=== PATIENT | female | born 1940 | race Caucasian/White ===

== ENCOUNTER 2016-12-13 17:49 | Emergency (ER) | payer MEDICARE, OTHER ==
[2016-12-13] MEDS ORDERED: DIPH/PERTUSS(ACELL)/TETANUS VAC/PF 0.5 ML SYR (>=10YO) IM ONE (18:56)
--- NOTE | 2016-12-13 18:59 | ER Document Report ---
ED Medical Screen (RME) - General Chief Complaint: Fall Injury Stated Complaint: FALL/CUT ON FACE/ARM PAIN Time Seen by Provider: 12/13/16 18:50 Notes: This 76-year-old female patient was driving to this area from [facility] and stopped at a rest area about 2 PM today. While outside her car she tripped and fell face forward landing on her hands and knees. She struck her face and suffered a laceration to the right upper lip, she injured her left elbow, she has bruising to both hands, she has abrasion with bleeding to the right knee. She has a right total knee. She has been able to ambulate without difficulty. She is on Eliquis leading to the excessive bruising that she has. I have greeted and performed a rapid initial assessment of this patient. A comprehensive ED assessment and evaluation of the patient, analysis of test results and completion of the medical decision making process will be conducted by additional ED providers. TRAVEL OUTSIDE OF THE [place] IN LAST 30 DAYS: No - Related Data Allergies/Adverse Reactions: heparin Allergy (Verified 12/13/16 18:15) omeprazole [From Prilosec] Allergy (Verified 12/13/16 18:15) Past Medical History - Social History Chew tobacco use (# tins/day): No Frequency of alcohol use: None Drug Abuse: None Renal/ Medical History: Denies: Hx Peritoneal Dialysis Surgical Hx: Negative Past Surgical History: Reports: Hx Orthopedic Surgery - Immunizations Hx Diphtheria, Pertussis, Tetanus Vaccination: No Physical Exam - Vital signs Vitals: Temp Pulse Resp BP Pulse Ox 98.3 F 60 16 150/63 H 94 12/13/16 18:16 12/13/16 18:16 12/13/16 18:16 12/13/16 18:16 12/13/16 18:16 Course - Vital Signs Vital signs: Temp Pulse Resp BP Pulse Ox 98.3 F 60 16 150/63 H 94 12/13/16 18:16 12/13/16 18:16 12/13/16 18:16 12/13/16 18:16 12/13/16 18:16
--- NOTE | 2016-12-13 20:01 | RADIOLOGY REPORT (SQ) ---
EXAM DESCRIPTION: ELBOW LEFT OVER 2 VIEWS COMPLETED DATE/TIME: 12/13/2016 7:50 pm REASON FOR STUDY: fall, pain and swelling COMPARISON: None. NUMBER OF VIEWS: Four views. TECHNIQUE: AP, lateral, and both oblique radiographic images acquired of the left elbow. LIMITATIONS: None. FINDINGS: MINERALIZATION: Normal. BONES: Nondisplaced radial head intra-articular fracture. No dislocation. No worrisome bone lesions . JOINT: Small effusion. SOFT TISSUES: Mild soft tissue swelling. No foreign body. OTHER: No other significant finding. IMPRESSION: Nondisplaced radial head intra-articular fracture. TECHNICAL DOCUMENTATION: JOB ID: [id number] [employer]- All Rights Reserved
--- NOTE | 2016-12-13 20:04 | RADIOLOGY REPORT (SQ) ---
EXAM DESCRIPTION: KNEE BILATERAL 1-2 VIEWS COMPLETED DATE/TIME: 12/13/2016 7:50 pm REASON FOR STUDY: fell on knees COMPARISON: None. NUMBER OF VIEWS: Four views. TECHNIQUE: AP and lateral standing bilateral knees. LIMITATIONS: None. FINDINGS: MINERALIZATION: Normal. RIGHT KNEE BONES: Right total knee arthroplasty hardware appears in expected position. No acute fracture. No wo rrisome bone lesions. LEFT KNEE BONES: No acute fracture. No worrisome bone lesions. MEDIAL COMPARTMENT: Mild arthrosis. LATERAL COMPARTMENT: No significant osteophytes. IMPRESSION: No fracture. TECHNICAL DOCUMENTATION: JOB ID: [id number] [employer]- All Rights Reserved
--- NOTE | 2016-12-13 20:10 | RADIOLOGY REPORT (SQ) ---
EXAM DESCRIPTION: CT HEAD WITHOUT COMPLETED DATE/TIME: 12/13/2016 7:52 pm REASON FOR STUDY: fall, on eliquis COMPARISON: None. TECHNIQUE: Axial images acquired through the brain without intravenous contrast. Images reviewed wi th bone, brain and subdural windows. Images stored on PACS. All CT scanners at this facility use dose modulation, iterative reconstruction, and/or weight based d osing when appropriate to reduce radiation dose to as low as reasonably achievable (ALARA). [facility]: Dose Right [facility]: CareDose [facility]: Dose Right [facility]: Teradose 4D [facility]: Index RADIATION DOSE: 64.61mGy. LIMITATIONS: None. FINDINGS: VENTRICLES: Prominent. CEREBRUM: No masses. No hemorrhage. No midline shift. Areas of low density in the white matter mos t likely due to chronic micro-vascular ischemic change. No evidence for acute infarction. CEREBELLUM: No masses. No hemorrhage. No alteration of density. No evidence for acute infarction. EXTRAAXIAL SPACES: Age-related involutional change. No fluid collections. No masses. ORBITS AND GLOBE: No intra- or extraconal masses. Normal contour of globe without masses. CALVARIUM: No fracture. PARANASAL SINUSES: No fluid or mucosal thickening. SOFT TISSUES: No mass or hematoma. OTHER: No other significant finding. IMPRESSION: CHRONIC CHANGES OF ATROPHY AND MICROVASCULAR ISCHEMIA. NO ACUTE PROCESS. TECHNICAL DOCUMENTATION: JOB ID: [id number] Quality ID # [id number]: Final reports with documentation of one or more dose reduction techniques (e.g., Au tomated exposure control, adjustment of the mA and/or kV according to patient size, use of iterative reconstruction technique) 2010 [employer]- All Rights Reserved
[2016-12-13] MEDS ORDERED: LIDOCAINE 1%/EPINEPHRINE INJ 20 ML VIAL INJ ONE (21:18)
[2016-12-13] MEDS ORDERED: HYDROCODONE/ACETAMINOPHEN 5-325 MG TABLET PO ONE (21:24)
--- NOTE | 2016-12-13 22:24 | ER Document Report ---
ED Fall - General Mode of Arrival: Wheelchair Information source: Patient TRAVEL OUTSIDE OF THE [place] IN LAST 30 DAYS: No - HPI Occurred: Other - Refer to HPI notes - General Chief Complaint: Fall Injury Stated Complaint: FALL/CUT ON FACE/ARM PAIN Time Seen by Provider: 12/13/16 18:50 Notes: Patient is a 76-year-old female presenting to the emergency department after a fall. Patient states that she was at a rest stop when she got distracted by a dog in a vehicle and she tripped over a curb and fell. Patient states she fell on both of her knees, her face, her left elbow and the palms of her hand. Patient complains of pain to her left elbow and right knee and to her right upper lip. Patient is on doxycycline 2 times a day. Patient has a history of A. fib and is taking Eliquis. Patient denies any loss of consciousness, chest pain, abdominal pain, shortness of breath or other symptoms. (KELLY NEVILLE) Correction patient is on dicloxacillin twice a day not doxycycline. (JUDITH RODRIGUEZ) - Related data Allergies/Adverse Reactions: heparin Allergy (Verified 12/13/16 18:15) omeprazole [From Prilosec] Allergy (Verified 12/13/16 18:15) Past Medical History - General Information source: Patient - Social History Smoking Status: Never Smoker Cigarette use (# per day): No Chew tobacco use (# tins/day): No Frequency of alcohol use: None Drug Abuse: None Family History: None Patient has suicidal ideation: No Patient has homicidal ideation: No Surgical Hx: Negative Past Surgical History: Reports: Hx Orthopedic Surgery - Immunizations Hx Diphtheria, Pertussis, Tetanus Vaccination: No Review of Systems - Review of Systems Constitutional: No symptoms reported EENT: No symptoms reported Cardiovascular: No symptoms reported Respiratory: No symptoms reported Gastrointestinal: No symptoms reported Genitourinary: No symptoms reported Female Genitourinary: No symptoms reported Musculoskeletal: See HPI Skin: See HPI Hematologic/Lymphatic: No symptoms reported Neurological/Psychological: No symptoms reported -: Yes All other systems reviewed and negative Physical Exam - Vital signs Vitals: Temp Pulse Resp BP Pulse Ox 98.3 F 60 16 150/63 H 94 12/13/16 18:16 12/13/16 18:16 12/13/16 18:16 12/13/16 18:16 12/13/16 18:16 - Notes Notes: GENERAL: Alert, interacts well. No acute distress. HEAD: Normocephalic, atraumatic. EYES: Pupils equal, round, and reactive to light. Extraocular movements intact. ENT: Oral mucosa moist, tongue midline. Patient has some chipping to her medial lateral incisors. Laceration completely through the right upper lip, 1 cm in length on the outside and 1.5 cm on the inside. NECK: Full range of motion. Supple. Trachea midline. LUNGS: Clear to auscultation bilaterally, no wheezes, rales, or rhonchi. No respiratory distress. HEART: Regular rate. Systolic 2/6 murmur. Gallop with occasional skipped beats. ABDOMEN: Soft, non-tender. Non-distended. Bowel sounds present in all 4 quadrants. EXTREMITIES: No edema, radial and dorsalis pedis pulses 2/4 bilaterally. No cyanosis. Flexion stops at 90 degrees at left elbow. Abrasion and ecchymosis to right knee, small effusion. Normal anterior and posterior drawer test tenderness to palpation over the left radial head. NEUROLOGICAL: Alert and oriented x3. Normal speech. PSYCH: Normal affect, normal mood. SKIN: Warm, dry, normal turgor. (KELLY NEVILLE) Course - Re-evaluation Re-evalutation: 12/13/16 23:16 Lip laceration was repaired, CT scan of the head shows no bleeding or fracture, left elbow x-ray shows radial head fracture that is nondisplaced. This was placed in a splint. Knee x-ray is negative. Patient is discharged to home, asked to follow-up with orthopedics within the next week. Patient states she will be going back to [place], she is aware that I strongly recommend she follow up with orthopedics on Friday at our facility anyway to ensure that she continues to have good alignment of her radial head fracture. (JUDITH RODRIGUEZ) - Vital Signs Vital signs: Temp Pulse Resp BP Pulse Ox 98.1 F 76 18 148/81 H 95 12/14/16 00:06 12/14/16 00:06 12/14/16 00:06 12/14/16 00:06 12/14/16 00:06 Procedures - Immobilization Left Elbow Pre-Proc Neuro Vasc Exam: Normal Immobilizer type: Long arm posterior Performed by: Provider assisted, RN Post-Proc Neuro Vasc Exam: Normal Alignment checked and good: Yes - Laceration/Wound Repair Right Upper Lip Time completed: 22:30 Wound length (cm): 1 Wound's Depth, Shape: Linear, Other - through to the other side of the lip Laceration pre-procedure: Sterile PPE donned, Sterile drapes applied, Shur- Clens applied Anesthetic type: 1% Lidocaine w/epi Volume Anesthetic (mLs): 3 Wound explored: Contaminated Wound Debrided: Minimal Wound Repaired With: Sutures Suture Size/Type: 5:0, Ethilon Number of Sutures: 2 Layer Closure?: No Post-procedure NV exam normal: Yes Complications: No Discharge - Discharge Clinical Impression: Fracture of radial head, left, closed Qualifiers: Encounter type: initial encounter Fracture alignment: nondisplaced Qualified Code(s): S52.125A - Nondisplaced fracture of head of left radius, initial encounter for closed fracture Lip laceration Qualifiers: Encounter type: initial encounter Qualified Code(s): S01.511A - Laceration without foreign body of lip, initial encounter Fall Qualifiers: Encounter type: initial encounter Qualified Code(s): W19.XXXA - Unspecified fall, initial encounter Condition: Stable Disposition: HOME, SELF-CARE Additional Instructions: Laceration Care - Please get the sutures removed in 5 days. Your laceration has been sutured to keep the skin edges aligned during healing. The time of suture removal depends on the nature and location of your cut. Please follow the care instructions the doctor has outlined for you and return for further care, according to the schedule you've been given. Keep the wound and dressing clean. Unless you were told otherwise, you may shower daily, blotting the wound dry with a clean, unused towel. At other times, If the dressing gets wet or blood soaked, remove it and blot the wound dry, then reapply a new dressing. Unless you were instructed otherwise, dressings should be changed at least daily. If any signs of infection occur (swelling, redness, increasing tenderness, red streaks, tender lumps in the armpit or groin above the laceration, or fever) , see the doctor immediately. Head Injury Precautions At this point, there is no evidence that your head injury is serious. Observation is necessary, however. Take only clear liquids for the first few hours, unless told otherwise by the doctor. If no pain medication was prescribed, you may take acetaminophen according to the directions on the bottle. Do not take any medication that may alter your level of alertness (unless you've discussed it with the doctor first) . Limit activity for the first 24 hours. Bed rest is best. During the first 24 hours, check to see approximately every two to three hours that the patient is easily arousable, responds normally, and can perform common tasks such as walking without difficulty. Contact your doctor or go to the hospital if any of the following things occur: Persistent vomiting, difficulty in arousing the patient, worsening or continued headache, or failure to improve as expected. Head injuries can cause symptoms that persist for a few days or even a few weeks. Referrals: KRIS AMES DO [ACTIVE STAFF] - 12/16/16 Scribe Attestation: 12/14/16 01:19 I personally performed the services described in the documentation, reviewed and edited the documentation which was dictated to the scribe in my presence, and it accurately records my words and actions. (JUDITH RODRIGUEZ) Scribe Documentation - Scribe Written by Ilan:: Ilan Finney, 12/13/2016 22:38 acting as scribe for :: Donald
[2016-12-13] MEDS ORDERED: HYDROCODONE/ACETAMINOPHEN 5-325 MG 6 TAB/DSPK PO PRN (22:36)
[2016-12-13] MEDS ORDERED: CLINDAMYCIN HCL 150 MG CAPSULE PO ONE (22:36)
[2016-12-14 00:13] VITALS: BP 148/81
== END 2016-12-14 00:30 | disposition home or self-care (01) ==
LOC: EDSEX → ER 17:49
PROC: 0CQ0XZZ Repair Upper Lip, External Approach (ICD-10-PCS; principal; 2016-12-13)
DX: S52.125A Nondisplaced fracture of head of left radius, initial encounter for closed fracture (principal); S01.511A Laceration without foreign body of lip, initial encounter; M79.603 Pain in arm, unspecified; Z79.899 Other long term (current) drug therapy; I48.91 Unspecified atrial fibrillation; W19.XXXA Unspecified fall, initial encounter
CPT/HCPCS: 99283; 90471; 73080; 73560; 70450; 90715; 12011; A9270 ×2; J3490